=== PATIENT | male | born 1985 | race Caucasian/White ===

== ENCOUNTER 2018-11-28 02:20 | Emergency (ER) | payer MEDICAID ==
[~2018-11-28] VITALS: Ht 175.3 cm; Wt 196.0 kg
[2018-11-28 02:24] VITALS: BP 129/75
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
== END 2018-11-28 02:51 ==
LOC: ER 02:21
DX: Z04.1 Encounter for examination and observation following transport accident (principal); Z65.3 Problems related to other legal circumstances; Z88.5 Allergy status to narcotic agent; V49.49XA Driver injured in collision with other motor vehicles in traffic accident, initial encounter; Y93.89 Activity, other specified; Y92.89 Other specified places as the place of occurrence of the external cause; Y99.8 Other external cause status
CPT/HCPCS: 99283